=== PATIENT | female | born 1965 | race African-American/Black ===

== ENCOUNTER 2016-12-02 15:44 | Emergency (ER) | payer OTHER ==
[~2016-12-02] VITALS: Ht 165.1 cm; Wt 90.7 kg
[2016-12-02 15:44] VITALS: BP 133/87
[~2016-12-02 15:44] MED LIST: FLEXERIL PO; IBUPROFEN 600600 M1 PO; LISINOPRIL-HCT1 EACH PO; NOHOMEMEDICATIONS; NORCO 5-325 TA1 EACH PO; PREDNISONE 20 M20 M1 PO; PREDNISONE 20 M20 MG PO; TORADOL 10 MG T10 MG PO
[2016-12-02] MEDS ORDERED: CYCLOBENZAPRINE5 MG PO (16:16)
[2016-12-02] MEDS ORDERED: DELTASONE20 MG PO (16:16)
[2016-12-02] MEDS ORDERED: MOBIC15 MG PO (16:16)
[2016-12-02] MEDS ORDERED: HYDROCODONE-AP1 EAC6 PO (16:26)
== END 2016-12-02 16:40 | disposition home or self-care (01) ==
LOC: ER 15:44
DX: M54.32 Sciatica, left side (principal); I10 Essential (primary) hypertension; F17.210 Nicotine dependence, cigarettes, uncomplicated; Z98.890 Other specified postprocedural states; Z88.5 Allergy status to narcotic agent

== ENCOUNTER → 2019-09-20 | Outpatient (CLI) | payer OTHER ==
[~2019-09-20] MED LIST changes: +CYCLOBENZAPRINE5 MG PO; +DELTASONE20 MG PO; +HYDROCODONE-AP1 EAC6 PO; +MOBIC15 MG PO
== END ==
LOC: RAD 12:42
DX: Z12.31 Encounter for screening mammogram for malignant neoplasm of breast (principal); M25.551 Pain in right hip

== ENCOUNTER 2020-01-09 19:44 | Emergency (ER) | payer OTHER ==
[~2020-01-09] VITALS: Ht 165.1 cm; Wt 90.7 kg
[2020-01-09] MEDS ORDERED: LISINOPRIL-HCT1 EAC1 PO (19:50)
[2020-01-09] MEDS ORDERED: CORTISPORIN OTI10 M2 OTIC (20:56)
[2020-01-09 21:25] VITALS: BP 159/101
== END 2020-01-09 21:25 | disposition home or self-care (01) ==
LOC: ER 19:44
DX: H61.21 Impacted cerumen, right ear (principal); I10 Essential (primary) hypertension; F17.210 Nicotine dependence, cigarettes, uncomplicated; Z79.899 Other long term (current) drug therapy; Z88.5 Allergy status to narcotic agent

== ENCOUNTER 2020-02-26 18:12 | Emergency (ER) | payer OTHER ==
[~2020-02-26] VITALS: Ht 165.1 cm; Wt 90.7 kg
[~2020-02-26 18:12] MED LIST changes: +CORTISPORIN OTI10 M2 OTIC; +LISINOPRIL-HCT1 EAC1 PO
[2020-02-26 20:14] LABS: ABSOLUTE NEUTROPHILS 5.5 thou/uL (1.4-8.2); BASOPHILS 0.6 % (0.0-2.0); EOSINOPHILS 0.3 % (0.0-3.0); HEMATOCRIT 37.1 % (37.0-47.0); HEMOGLOBIN 12.9 gm/dL (12.0-15.0); LYMPHOCYTES 13.2 % (24.0-44.0); MCH 31.5 pg (26.0-34.0); MCHC 34.9 g/dL (28.0-37.0); MCV 90.4 fL (80.0-100.0); MONOCYTES 4.8 % (1.0-8.0); PLATELET COUNT 324 thou/uL (150-400); POLYS 81.1 % (36.0-66.0); RDW 14.1 % (10.5-14.5); WBC 6.8 thou/uL (4.0-11.0)
[2020-02-26 20:21] LABS: ANION GAP 10 mmol/L (7-16); BUN 8 mg/dL (7-18); CALCIUM 9.6 mg/dL (8.5-10.1); CHLORIDE 100 mmol/L (98-107); CO2 29 mmol/L (21-32); CREATININE 0.7 mg/dL (0.6-1.0); GLUCOSE 123 mg/dL (74-106); POTASSIUM 3.8 mmol/L (3.5-5.1); SODIUM 139 mmol/L (136-145)
[2020-02-26 20:35] LABS: ALBUMIN 3.8 g/dL (3.4-5.0); SGOT 54 U/L (15-37); SGPT 96 U/L (30-65); TOTAL BILIRUBIN 0.2 mg/dL (0.2-1.0); TOTAL PROTEIN 8.2 g/dL (6.4-8.2); TROPONIN-I <0.06 ng/mL (<0.06)
[2020-02-26] MEDS ORDERED: PREDNISONE 20 M20 M1 PO (21:04)
[2020-02-26] MEDS ORDERED: PROAIR HFA8.5 GM INH (21:04)
[2020-02-26] MEDS ORDERED: ZPAK PO (21:04)
[2020-02-26 21:20] VITALS: BP 117/65
--- NOTE | 2020-02-27 11:17 | EKG ---
[facility] [place] [address] ELECTROCARDIOGRAM REPORT Name: RAINE MCKEON Room #: DEP [facility]#: [id number] Admission: 02/26/20 Attend Phys: Discharge: 02/26/20 Date of : 65 Report #: [id number] THIS REPORT FOR: cc: Guevara Jordan James A. DO Couchonnal, Luis F. MD ~ THIS REPORT FOR: //name// [facility] ED Test Date: 2020-02-26 Test Time: 20:00:25 Pat Name: RAINE MCKEON Department: Room: Gender: F Gi Asst: MPABLAKE : 1965 Requested By: Jarred Estevez Order Number: [id number] MD: Etienne Mireles Measurements Intervals [place] Rate: 65 P: 45 LA: 188 QRS: -58 QRSD: 94 T: -17 QT: 412 QTc: 429 Interpretive Statements Sinus rhythm Inferior infarct, age indeterminate Consider anterior infarct Compared to ECG 08/20/2015 20:47:55 Left-axis deviation no longer present Myocardial infarct finding still present Electronically Signed On 02-27-2020 11:17:42 CDT by Etienne Mireles [email or web address] <ELECTRONICALLY SIGNED> By: Etienne Mireles MD 02/27/20 1117 99 99 Etienne Mireles MD /EPI
== END 2020-02-26 21:20 | disposition home or self-care (01) ==
LOC: ER 18:12
PROVIDERS: Emergency Medicine
DX: J20.9 Acute bronchitis, unspecified (principal); I10 Essential (primary) hypertension; F17.210 Nicotine dependence, cigarettes, uncomplicated; Z98.890 Other specified postprocedural states; Z79.899 Other long term (current) drug therapy; Z88.5 Allergy status to narcotic agent